=== PATIENT | male | born 1960 | race Caucasian/White ===

== ENCOUNTER 2017-01-27 20:07 | Emergency (ER) | payer OTHER ==
[~2017-01-27] VITALS: Ht 185.4 cm; Wt 78.0 kg
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
[2017-01-27] MEDS ORDERED: ONDANSETRON PF 4 MG/2 ML VIAL. IM ONE (21:30)
[2017-01-27] MEDS ORDERED: HYDROmorphone PF 2 MG/ML VIAL IM ONE (21:30)
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
[2017-01-27 21:52] VITALS: BP 172/100
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
[2017-01-27] MEDS ORDERED: NAPR275T59 PO (22:17)
[2017-01-27] MEDS ORDERED: BACI3.5O8 TOP (22:17)
[2017-01-27] MEDS ORDERED: ACET325T9 PO (22:17)
== END 2017-01-27 22:30 | disposition home or self-care (01) ==
LOC: ER 20:07 → EEVIPCON 20:07 → ER 22:30
DX: S02.2XXA Fracture of nasal bones, initial encounter for closed fracture (principal); S00.83XA Contusion of other part of head, initial encounter; S00.03XA Contusion of scalp, initial encounter; S10.93XA Contusion of unspecified part of neck, initial encounter; I10 Essential (primary) hypertension; Y04.0XXA Assault by unarmed brawl or fight, initial encounter; Y93.89 Activity, other specified; Y99.8 Other external cause status; Y92.89 Other specified places as the place of occurrence of the external cause
CPT/HCPCS: 70450; 70486; 72125; 96372; 99284; J1170; J2405